=== PATIENT | female | born 1955 | race Caucasian/White ===

== ENCOUNTER → 2018-01-27 16:47 | Outpatient (CLI) | payer OTHER | END | disposition home or self-care (01) | LOC: D.MAMMO 14:45 | DX: Z12.31 Encounter for screening mammogram for malignant neoplasm of breast (principal) ==

== ENCOUNTER → 2018-03-28 14:21 | Outpatient (CLI) | payer OTHER | END | disposition home or self-care (01) | LOC: D.CT 14:21 | DX: R19.00 Intra-abdominal and pelvic swelling, mass and lump, unspecified site (principal) ==

== ENCOUNTER 2018-07-27 08:39 | Day surgery (SDC) | payer OTHER ==
[~2018-07-27] VITALS: Ht 154.9 cm; Wt 52.7 kg
--- NOTE | ~2018-07-27 | OP ---
PATIENT NAME: ASIM TANNER MEDICAL RECORD: [id number] :[birth year] LOCATION:D.OPS ADMISSION DATE: SURGEON: JNAIE PONCE DO DATE OF OPERATION: 07/27/2018 PROCEDURE: Colonoscopy. INDICATIONS FOR PROCEDURE: Screening for colorectal cancer. SCOPE: Olympus video pediatric colonoscope. MEDICATIONS: Propofol 300 mg IV per anesthesia. WITHDRAWAL TIME: 10 minutes. ESTIMATED BLOOD LOSS: None. COMPLICATIONS: None. FINDINGS: Informed consent was given. The patient was made comfortable with the above medication. After reaching an adequate level of sedation by slow IV push, the patient was placed on her left side. A digital rectal examination was performed and was normal. The endoscope was then advanced under direct visualization through the rectum to the terminal ileum. The endoscope was slowly withdrawn and the mucosa was carefully examined. The prep quality was excellent. There were no polyps visualized on today's examination. The mucosa of the colon was normal in its entirety. There was mild diverticulosis involving the sigmoid colon. Retroflexion was performed in the rectum with a normal-appearing rectal wall. The endoscope was withdrawn from the patient. The patient tolerated the procedure well, and there were no complications. IMPRESSION: 1. Mild diverticulosis of the sigmoid colon. 2. Otherwise, normal colonoscopy. PLAN AND RECOMMENDATIONS: 1. Discharge home when recovery parameters are met. 2. High fiber diet. 3. Continue current medications. 4. Recall colonoscopy in 7-10 years. TRANSINT:[id number] Voice Confirmation ID: [id number] DOCUMENT ID: [id number] JANIE PONCE DO CC: [id number] DICTATION DATE: 07/27/18 1111 LEATHER CLEANER: 07/27/18 1118 [facility] [address] [place] [address]
[2018-07-27 09:00] LABS: HEMATOCRIT 40.6 % (36.0-48.0); HEMOGLOBIN 14.3 g/dL (12-16); MCH 32.9 pg (26.0-34.0); MCHC 35.2 g/dL (31.0-37.0); MCV 93.5 fL (80.0-100.0); MEAN PLATELET VOLUME 8.5 fL (7.4-10.4); RBC 4.34 10x6/uL (4.00-5.40); RDW 12.2 % (11.5-14.5); WBC 7.3 10x3/uL (4.8-10.8)
[2018-07-27 09:37] VITALS: BP 156/106; Ht 154.9 cm; Wt 52.7 kg
== END 2018-07-27 12:00 | disposition home or self-care (01) ==
LOC: D.OPS 08:39
PROVIDERS: Anesthesiology
DX: Z12.11 Encounter for screening for malignant neoplasm of colon (principal); K57.30 Diverticulosis of large intestine without perforation or abscess without bleeding; Z01.812 Encounter for preprocedural laboratory examination

== ENCOUNTER 2020-06-21 16:06 | Inpatient (IN) | payer OTHER ==
[~2020-06-21] VITALS: Ht 154.9 cm; Wt 56.2 kg
[2020-06-21] MEDS ORDERED: NP THYROID90 MG PO (17:10)
[2020-06-21] MEDS ORDERED: BYSTOLIC2.5 MG PO (17:10)
[2020-06-21 17:16] VITALS: BP 132/91; BMI 23.4
--- NOTE | 2020-06-21 17:19 | NUR ---
PATIENT ADMITTED TO ROOM 2237. ADMISSION COMPLETE.
--- NOTE | 2020-06-21 17:43 | NUR ---
IV SITED TO LEFT WRIST AFTER TWO ATTEMPT WITH 22 GAUGE. PATIENT REQUESTING FOOD AND DRINK. WAITING PAGE BACK FROM [facility] TO [facility] FOR ORDERS.
--- NOTE | 2020-06-21 18:37 | NUR ---
LAB NOTIFIED THAT MD PLACED ORDER FOR BLOOD CULTURES AFTER FLAGYL STARTED. STATES TURN OFF ABX AND WILL BE ON FLOOR TO GET CULTURES STAN.
[2020-06-21 19:24] LABS: BASOPHILS 0.4 % (0-2); EOSINOPHILS 0.3 % (0-7); HEMATOCRIT 38.9 % (36.0-48.0); HEMOGLOBIN 13.3 g/dL (12-16); IMMATURE GRANULOCYTES 0.8 % (0-5); LYMPHOCYTES 12.1 % (15-50); MCHC 34.2 g/dL (31.0-37.0); MCV 93.7 fL (80.0-100.0); MEAN PLATELET VOLUME 8.2 fL (7.4-10.4); MONOCYTES 14.9 % (2-11); NEUTROPHILS 71.5 % (40-80); RBC 4.15 10x6/uL (4.00-5.40); RDW 12.1 % (11.5-14.5); WBC 8.9 10x3/uL (4.8-10.8)
[2020-06-21 19:32] LABS: PLATELET COUNT 350 10x3/uL (130-400)
[2020-06-21 19:36] LABS: APTT 33.8 SECONDS (22.8-39.4); INR 1.09 (0.85-1.17)
[2020-06-21 20:07] LABS: ALBUMIN 3.4 g/dL (3.4-5.0); ALKALINE PHOSPHATASE 79 U/L (30-120); ALT (SGPT) 34 U/L (10-68); BILIRUBIN - TOTAL 0.45 mg/dL (0.2-1.3); CALC OSMOLALITY 264 mosm/kg (275-300); CALCIUM 9.3 mg/dL (8.5-10.1); CHLORIDE - SERUM 91 mmol/L (98-107); CREATININE - SERUM 0.8 mg/dL (0.6-1.3); GLUCOSE 125 mg/dL (74-106); MAGNESIUM - SERUM 1.6 mg/dL (1.8-2.4); PROTEIN - SERUM 7.5 g/dL (6.4-8.2); SODIUM 132 mmol/L (136-145); THYROID STIMULATING HORMONE 1.65 uIU/mL (0.36-3.74); UREA NITROGEN 10 mg/dL (7-18); eGFR NON AFRICAN AMERICAN 77 mL/min (90-120)
[2020-06-21 23:21] LABS: BILIRUBIN NEGATIVE (NEGATIVE); GLUCOSE NEGATIVE (NEGATIVE); KETONE SMALL mg/dL (NEGATIVE); NITRITE POSITIVE (NEGATIVE); UROBILINOGEN NORMAL (NORMAL); WHITE CELLS - URINE 25-50 /hpf (NEGATIVE)
[2020-06-21 23:22] LABS: BACTERIA MANY /hpf (NEGATIVE); EPITHELIAL CELLS RARE /hpf (0-5)
[2020-06-22 07:22] LABS: BASOPHILS 0.4 % (0-2); EOSINOPHILS 0.7 % (0-7); HEMATOCRIT 35.2 % (36.0-48.0); IMMATURE GRANULOCYTES 0.5 % (0-5); LYMPHOCYTES 8.9 % (15-50); MCH 32.2 pg (26.0-34.0); MCHC 34.1 g/dL (31.0-37.0); MCV 94.4 fL (80.0-100.0); MEAN PLATELET VOLUME 8.4 fL (7.4-10.4); MONOCYTES 16.7 % (2-11); NEUTROPHILS 72.8 % (40-80); PLATELET COUNT 335 10x3/uL (130-400); RBC 3.73 10x6/uL (4.00-5.40); RDW 12.2 % (11.5-14.5); WBC 10.2 10x3/uL (4.8-10.8)
[2020-06-22 08:11] LABS: ALBUMIN 2.7 g/dL (3.4-5.0); ALKALINE PHOSPHATASE 68 U/L (30-120); ALT (SGPT) 25 U/L (10-68); BILIRUBIN - TOTAL 0.39 mg/dL (0.2-1.3); CALC OSMOLALITY 259 mosm/kg (275-300); CALCIUM 8.8 mg/dL (8.5-10.1); CARBON DIOXIDE 28.6 mmol/L (21.0-32.0); CHLORIDE - SERUM 94 mmol/L (98-107); CREATININE - SERUM 0.8 mg/dL (0.6-1.3); GLUCOSE 103 mg/dL (74-106); MAGNESIUM - SERUM 1.6 mg/dL (1.8-2.4); POTASSIUM - SERUM 3.8 mmol/L (3.5-5.1); SODIUM 130 mmol/L (136-145); UREA NITROGEN 9 mg/dL (7-18); eGFR NON AFRICAN AMERICAN 77 mL/min (90-120)
--- NOTE | 2020-06-22 09:46 | NUR ---
PT ALERT AND ORIENTED X4 UPON ENTERING. AMBULATED TO THE BATHROOM AND BACK BY HERSELF. FAMILY AT BEDSIDE. ADMINISTERED MEDICATION WITH SMALL SIP OF WATER. ASSESSMENT PERFORMED. DENIES ANY NEEDS. BED IN LOWEST POSITION, BED RAILS X2, CALL LIGHT WITHIN REACH. WILL CONTINUE TO MONITOR.
[2020-06-22 10:10] VITALS: BP 89/62
--- NOTE | 2020-06-22 13:16 | NUR ---
ADMINISTERED PRN MORPHINE FOR 05/17. RESTING IN BED, FAMILY AT BEDSIDE. DENIES ANY NEEDS. WILL CONTINUE TO MONITOR.
[2020-06-22 13:25] VITALS: BP 121/77
--- NOTE | 2020-06-22 13:58 | NUR ---
I have reviewed this patient and I concur with the Shift Assessment completed by the Licensed Practical Nurse today this shift.
--- NOTE | 2020-06-22 14:57 | NUR ---
HUNG IV MAG TO REPLACE ELECTROLYTES PER PROTOCOL. RESTING COMFORTABLY IN BED, FAMILY AT BEDSIDE. WILL CONTINUE TO MONITOR.
[2020-06-22 17:02] VITALS: BP 113/81
--- NOTE | 2020-06-22 17:26 | NUR ---
ADMINISTERED PRN MORPHINE FOR VAGINAL PAIN, HUNG IV ABX. TOLERATING WELL. RESTING COMFORTABLY IN BED. DENIES ANY NEEDS. WILL CONTINUE TO MONITOR.
--- NOTE | 2020-06-22 19:48 | NUR ---
ADMINISTERED PRN BENADRYL FOR REPORTED ITCHING. DENIES ANY NEEDS. RESTING COMFORTABLY.
[2020-06-22 21:00] VITALS: BP 115/75
--- NOTE | 2020-06-23 01:59 | NUR ---
PT C/O DILAUDID PAIN MEDICATION TOO STRONG, GIVING HER PANIC ATTACK. CALLED DR MCKEE. RECEIVED ORDER TO D/C DILAUDID PRIMARY TEACHING ASSISTANT, RENEW ORIGINAL MORPHINE ORDER AND ORDER REGULAR DIET. REMOVED PRIMARY TEACHING ASSISTANT AND WASTED REMAINDER WITH DAVE TROY. NO OTHER NEEDS. WILL REASSESS AND CONTINUE TO MONITOR.
[2020-06-23 07:01] LABS: BASOPHILS 0.8 % (0-2); EOSINOPHILS 2.3 % (0-7); HEMATOCRIT 34.5 % (36.0-48.0); HEMOGLOBIN 11.3 g/dL (12-16); IMMATURE GRANULOCYTES 1.3 % (0-5); LYMPHOCYTES 24.3 % (15-50); MCH 31.7 pg (26.0-34.0); MCHC 32.8 g/dL (31.0-37.0); MEAN PLATELET VOLUME 8.3 fL (7.4-10.4); MONOCYTES 17.4 % (2-11); NEUTROPHILS 53.9 % (40-80); PLATELET COUNT 359 10x3/uL (130-400); RBC 3.56 10x6/uL (4.00-5.40); RDW 12.3 % (11.5-14.5)
[2020-06-23 07:04] LABS: MCV 96.9 fL (80.0-100.0); WBC 6.1 10x3/uL (4.8-10.8)
[2020-06-23 07:12] LABS: ALBUMIN 2.6 g/dL (3.4-5.0); ALKALINE PHOSPHATASE 59 U/L (30-120); ALT (SGPT) 22 U/L (10-68); BILIRUBIN - TOTAL 0.33 mg/dL (0.2-1.3); CALC OSMOLALITY 265 mosm/kg (275-300); CALCIUM 8.7 mg/dL (8.5-10.1); CARBON DIOXIDE 28.4 mmol/L (21.0-32.0); CHLORIDE - SERUM 99 mmol/L (98-107); CREATININE - SERUM 0.7 mg/dL (0.6-1.3); GLUCOSE 85 mg/dL (74-106); MAGNESIUM - SERUM 1.7 mg/dL (1.8-2.4); POTASSIUM - SERUM 3.8 mmol/L (3.5-5.1); PROTEIN - SERUM 6.7 g/dL (6.4-8.2); SODIUM 135 mmol/L (136-145); eGFR NON AFRICAN AMERICAN 90 mL/min (90-120)
[2020-06-23 07:15] VITALS: BP 129/88
[2020-06-23 07:15] LABS: UREA NITROGEN 5 mg/dL (7-18)
--- NOTE | 2020-06-23 08:03 | NUR ---
PT SITTING UP IN BED WITH EYES OPEN, ALERT AND ORIENTED WITH NO S/S OF DISTRESS CURRENTLY. IV LOCATED TO LEFT WRIST RUNNING NS @ 75ML. DENIES NEEDS AT THIS TIME, WILL CONT TO MONITOR.
--- NOTE | 2020-06-23 08:51 | NUR ---
SPOKE WITH PHARMACY ABOUT RETIMING ARMJIM THYROID TO 0600 AFTER TODAY, TODAY WILL GIVE AT 1000 TO GIVE ENOUGH TIME IN BETWEEN OTHER PILLS AND EATING BREAKFAST.
[2020-06-23 12:04] VITALS: BP 126/81
[2020-06-23 15:48] VITALS: BP 132/87
[2020-06-23 20:00] VITALS: BP 142/97
[2020-06-24] VITALS: BP 149/100
[2020-06-24 04:00] VITALS: BP 147/77
--- NOTE | 2020-06-24 07:15 | NUR ---
RECEIVE BEDSIDE SHIFT REPORT. RESTING IN BED WITH LIGHTS OFF. STATES SHE HAS NO PAIN AT THIS TIME. DENIES ANY CURRENT NEEDS. WILL CONTINUE PLAN OF CARE AND SAFETY PRECAUTIONS.
[2020-06-24 07:46] LABS: BASOPHILS 0.6 % (0-2); EOSINOPHILS 1.2 % (0-7); HEMATOCRIT 36.4 % (36.0-48.0); HEMOGLOBIN 11.9 g/dL (12-16); IMMATURE GRANULOCYTES 0.7 % (0-5); LYMPHOCYTES 12.1 % (15-50); MCH 31.4 pg (26.0-34.0); MCHC 32.7 g/dL (31.0-37.0); MEAN PLATELET VOLUME 8.3 fL (7.4-10.4); MONOCYTES 12.7 % (2-11); NEUTROPHILS 72.7 % (40-80); PLATELET COUNT 397 10x3/uL (130-400); RBC 3.79 10x6/uL (4.00-5.40); RDW 12.4 % (11.5-14.5)
[2020-06-24 07:47] LABS: ALBUMIN 2.7 g/dL (3.4-5.0); ALKALINE PHOSPHATASE 60 U/L (30-120); ALT (SGPT) 22 U/L (10-68); BILIRUBIN - TOTAL 0.34 mg/dL (0.2-1.3); CALC OSMOLALITY 270 mosm/kg (275-300); CALCIUM 8.4 mg/dL (8.5-10.1); CARBON DIOXIDE 28.6 mmol/L (21.0-32.0); CHLORIDE - SERUM 96 mmol/L (98-107); CREATININE - SERUM 0.7 mg/dL (0.6-1.3); GLUCOSE 106 mg/dL (74-106); MAGNESIUM - SERUM 1.3 mg/dL (1.8-2.4); POTASSIUM - SERUM 3.7 mmol/L (3.5-5.1); PROTEIN - SERUM 6.1 g/dL (6.4-8.2); SODIUM 137 mmol/L (136-145); eGFR NON AFRICAN AMERICAN 90 mL/min (90-120)
[2020-06-24 07:48] LABS: UREA NITROGEN 3 mg/dL (7-18)
[2020-06-24 07:57] LABS: WBC 10.3 10x3/uL (4.8-10.8)
[2020-06-24 08:37] VITALS: BP 118/83
[2020-06-24 12:00] VITALS: BP 136/92
[2020-06-24 14:34] VITALS: Ht 154.9 cm; Wt 56.2 kg
[2020-06-24 16:00] VITALS: BP 110/72
[2020-06-24 20:55] VITALS: BP 115/71
[2020-06-25 01:48] VITALS: BP 142/94
[2020-06-25 04:30] VITALS: BP 141/94
[2020-06-25 06:17] LABS: BASOPHILS 0.8 % (0-2); EOSINOPHILS 2.2 % (0-7); HEMOGLOBIN 11.5 g/dL (12-16); IMMATURE GRANULOCYTES 0.8 % (0-5); LYMPHOCYTES 20.6 % (15-50); MCHC 32.9 g/dL (31.0-37.0); MCV 94.3 fL (80.0-100.0); MEAN PLATELET VOLUME 8.3 fL (7.4-10.4); MONOCYTES 14.6 % (2-11); PLATELET COUNT 368 10x3/uL (130-400); RBC 3.71 10x6/uL (4.00-5.40); RDW 12.4 % (11.5-14.5)
[2020-06-25 06:26] LABS: WBC 6.4 10x3/uL (4.8-10.8)
[2020-06-25 06:33] LABS: ALBUMIN 2.5 g/dL (3.4-5.0); ALKALINE PHOSPHATASE 54 U/L (30-120); ALT (SGPT) 18 U/L (10-68); BILIRUBIN - TOTAL 0.38 mg/dL (0.2-1.3); CALCIUM 8.6 mg/dL (8.5-10.1); CARBON DIOXIDE 26.8 mmol/L (21.0-32.0); CREATININE - SERUM 0.8 mg/dL (0.6-1.3); GLUCOSE 100 mg/dL (74-106); MAGNESIUM - SERUM 1.6 mg/dL (1.8-2.4); PROTEIN - SERUM 6.4 g/dL (6.4-8.2); eGFR NON AFRICAN AMERICAN 77 mL/min (90-120)
[2020-06-25 06:54] LABS: CHLORIDE - SERUM 96 mmol/L (98-107); SODIUM 133 mmol/L (136-145)
[2020-06-25 07:00] LABS: CALC OSMOLALITY 262 mosm/kg (275-300); POTASSIUM - SERUM 3.1 mmol/L (3.5-5.1); UREA NITROGEN 5 mg/dL (7-18)
--- NOTE | 2020-06-25 07:09 | NUR ---
WALKING ROUNDS COMPLETE, PT LAYING IN BED WITH EYES OPEN, PT DENIES PAIN OR NEEDS AT THIS TIME, IV INFUSING WITHOUT DIFFICULTY, SITE CLEAR, SR UP X2, CALL LIGHT IN REACH, WILL MONITOR
[2020-06-25 08:09] VITALS: BP 144/95
--- NOTE | 2020-06-25 08:50 | NUR ---
GAVE PT SCHEDULED MED, PT VOICES SHE IS SUPPOSED TO HAVE A CT SCAN, IFORNED PT THAT THERE IS NO ORDER, PT VERBALIZED UNDERSTANDING, WILL CONTINUE TO MONITOR
--- NOTE | 2020-06-25 11:24 | NUR ---
CALLED TO PT ROOM, PT REQUEST HOT TEA, PT DENIES PAIN OR ANY OTHER NEEDS, WILL MONITOR
[2020-06-25] MEDS ORDERED: ZITHROMAX250 MG PO (11:55)
[2020-06-25] MEDS ORDERED: FLAGYL500 MG PO (11:55)
[2020-06-25] MEDS ORDERED: LEVOFLOXACIN500 MG PO (11:55)
--- NOTE | 2020-06-25 12:40 | NUR ---
GAVE PT POTASSIUM 40MEQ PO AND MAG 400MG PO,
[2020-06-25 12:54] VITALS: BP 160/95
[2020-06-25 17:24] VITALS: BP 144/92
--- NOTE | 2020-06-25 17:29 | NUR ---
WENT OVER PT DISCHARGE INSTRUCTIONS, PT VERBALIZED UNDERSTANDING, ANTIBIOTIC CALLED INTO TRICIAT, PT VERBALIZED UNDERSTANDING, REMOVED IV, CATHLON INTACT, ALL PERSONAL BELONGINGS RETURNED, PT CALLED TO PICK HER UP
--- NOTE | 2020-06-25 18:09 | NUR ---
TOOK PT OUT VIA WHEELCHAIR, ALL PERSONAL BELONGINGS RETURNED
--- NOTE | 2020-06-25 19:26 | MORECARE ---
CASE MANAGEMENT DISCHARGE SUMMARY PATIENT: ASIM TANNER UNIT: [id number] ADM DATE: 06/22/20 AGE: 65 : 59 SEX: F ROOM/BED: D.2237 AUTHOR: ALFA,DOC PHYSICIAN: REFERRING PHYSICIAN: BRIAN SANDERS MD DATE OF SERVICE: 06/25/20 Discharge Plan Patient Name: ASIM TANNER Facility: [facility]:[place] : 1955 Planned Disposition: Home Anticipated Discharge Date: Discharge Date: 06/25/2020 Expected LOS: Initial Reviewer: [email or web address] Initial Review Date: 06/21/2020 Generated: 06/25/20 8:25 pm Comments DCP- Discharge Planning Updated by [email or web address]: Korina Valenzuela on 06/25/20 6:[address] Patient Name: ASIM TANNER Admission Status: Urgent Accout number: [id number] Admission Date: 06-22-2020 : 1955 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 CM educated patient on the CM role and verbal consent given by patient to complete assessment. Patient lives at home with family. Patient is independent. At discharge patient plans to return home and feels this is a safe discharge. CM discussed availability of home health, rehab services, and medical equipment. Patient will have family to transport home. Patient denied known discharge needs at this time. CM will continue to follow and will assist as needed with dc plans/needs. Information Technology Teacher: Korina Valenzuela DCPIA - Discharge Planning Initial Assessment Updated by [email or web address]: Korina Valenzuela on 06/25/20 7:23 pm * Is the patient Alert and Oriented? Yes * How many steps to enter\exit or inside your home? ramp * PCP CONNIE BARLOW APN * Pharmacy [facility] * Preadmission Environment Home with Family * ADLs Independent * Equipment None * List name and contact numbers for known caregivers / representatives who currently or will assist patient after discharge: HALLE TANNER - SPOUSE - [phone] * Verbal permission to speak to the caregivers and representatives has been obtained from the patient. Yes * Community resources currently utilized None * Additional services required to return to the preadmission environment? No * Can the patient safely return to the preadmission environment? Yes * Has this patient been hospitalized within the prior 30 days at any hospital? No Patient Name: ASIM TANNER Page [phone] at 1926 All edits/amendments must be made on the electronic document DICTATION DATE: 06/25/201924 ADDICTION COUNSELOR: JUDI 06/25/201924 RPT#: [id number] DC DATE:06/25/20 STATUS: DIS IN [facility] [address] [place] [address] END OF REPORT
--- NOTE | 2020-06-27 09:03 | MORECARE ---
CASE MANAGEMENT DISCHARGE SUMMARY PATIENT: ASIM TANNER UNIT: [id number] ADM DATE: 06/22/20 AGE: 65 : 59 SEX: F ROOM/BED: D.2237 AUTHOR: ALFA,DOC PHYSICIAN: REFERRING PHYSICIAN: BRIAN SANDERS MD DATE OF SERVICE: 06/27/20 Discharge Plan Patient Name: ASIM TANNER Facility: [facility]:[place] : 1955 Planned Disposition: Home Anticipated Discharge Date: Discharge Date: 06/25/2020 Expected LOS: Initial Reviewer: [email or web address] Initial Review Date: 06/21/2020 Generated: 06/27/20 10:02 am Comments DCP- Discharge Planning Updated by [email or web address]: Korina Valenzuela on 06/25/20 6:[address] Patient Name: ASIM TANNER Admission Status: Urgent Accout number: [id number] Admission Date: 06-22-2020 : 1955 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 CM educated patient on the CM role and verbal consent given by patient to complete assessment. Patient lives at home with family. Patient is independent. At discharge patient plans to return home and feels this is a safe discharge. CM discussed availability of home health, rehab services, and medical equipment. Patient will have family to transport home. Patient denied known discharge needs at this time. CM will continue to follow and will assist as needed with dc plans/needs. Mill Stenciler: Korina Valenzuela DCPIA - Discharge Planning Initial Assessment Updated by [email or web address]: Korina Valenzuela on 06/25/20 7:23 pm * Is the patient Alert and Oriented? Yes * How many steps to enter\exit or inside your home? ramp * PCP CONNIE BARLOW APN * Pharmacy [facility] * Preadmission Environment Home with Family * ADLs Independent * Equipment None * List name and contact numbers for known caregivers / representatives who currently or will assist patient after discharge: HALLE TANNER - SPOUSE - [phone] * Verbal permission to speak to the caregivers and representatives has been obtained from the patient. Yes * Community resources currently utilized None * Additional services required to return to the preadmission environment? No * Can the patient safely return to the preadmission environment? Yes * Has this patient been hospitalized within the prior 30 days at any hospital? No Last DP export: 06/25/20 6:26 p Patient Name: ASIM TANNER Page [phone] at 0903 All edits/amendments must be made on the electronic document DICTATION DATE: 06/27/20901 METAL TUBE CUTTER: JUDI 06/27/20901 RPT#: [id number] DC DATE:06/25/20 STATUS: DIS IN [facility] [address] [place] [address] END OF REPORT
== END 2020-06-25 18:10 | disposition home or self-care (01) | DRG 394 ==
LOC: D.MS 16:06 → OBSVTIME 16:06 → D.MS 16:06
PROVIDERS: Family Medicine; ADMIT Family Medicine; ATTEND Family Medicine
DX: N82.4 Other female intestinal-genital tract fistulae (principal); N32.1 Vesicointestinal fistula; I10 Essential (primary) hypertension; E78.5 Hyperlipidemia, unspecified; E03.9 Hypothyroidism, unspecified; E55.9 Vitamin D deficiency, unspecified; M19.90 Unspecified osteoarthritis, unspecified site; F41.8 Other specified anxiety disorders; R10.9 Unspecified abdominal pain

== ENCOUNTER → 2020-07-22 10:20 | Outpatient (CLI) | payer OTHER ==
[2020-06-24 14:34] VITALS: BMI 23.4
[~2020-07-22 10:20] MED LIST: BYSTOLIC2.5 MG PO; FLAGYL500 MG PO; LEVOFLOXACIN500 MG PO; NP THYROID90 MG PO; ZITHROMAX250 MG PO
== END | disposition home or self-care (01) ==
LOC: D.CT 10:20
PROVIDERS: ATTEND Nurse Practitioner
DX: K60.5 Anorectal fistula (principal)

== ENCOUNTER 2020-08-13 08:00 | Outpatient (CLI) | payer OTHER ==
[2020-06-24 14:34] VITALS: BMI 23.4
[2020-08-13] MEDS ORDERED: CIPRO500 MG PO (13:16)
[2020-08-13] MEDS ORDERED: CENTRUM SILVER1 EAC3 PO (13:16)
[2020-08-13] MEDS ORDERED: ULTRAM50 MG PO (13:17)
[2020-08-13 14:01] LABS: BASOPHILS 1.2 % (0-2); EOSINOPHILS 3.1 % (0-7); HEMATOCRIT 36.7 % (36.0-48.0); HEMOGLOBIN 12.7 g/dL (12-16); IMMATURE GRANULOCYTES 0.2 % (0-5); LYMPHOCYTES 36.2 % (15-50); MCH 30.8 pg (26.0-34.0); MCHC 34.6 g/dL (31.0-37.0); MCV 88.9 fL (80.0-100.0); MEAN PLATELET VOLUME 8.3 fL (7.4-10.4); MONOCYTES 11.2 % (2-11); NEUTROPHILS 48.1 % (40-80); RBC 4.13 10x6/uL (4.00-5.40); RDW 13.9 % (11.5-14.5); WBC 4.8 10x3/uL (4.8-10.8)
[2020-08-13 14:06] LABS: PLATELET COUNT 247 10x3/uL (130-400)
[2020-08-13 14:09] LABS: CALC OSMOLALITY 252 mosm/kg (275-300); CALCIUM 9.3 mg/dL (8.5-10.1); CARBON DIOXIDE 28.3 mmol/L (21.0-32.0); CHLORIDE - SERUM 92 mmol/L (98-107); CREATININE - SERUM 0.7 mg/dL (0.6-1.3); GLUCOSE 81 mg/dL (74-106); POTASSIUM - SERUM 3.8 mmol/L (3.5-5.1); SODIUM 128 mmol/L (136-145); UREA NITROGEN 4 mg/dL (7-18); eGFR NON AFRICAN AMERICAN 90 mL/min (90-120)
== END 2020-08-13 08:01 | disposition home or self-care (01) ==
LOC: D.PAN 08:00 → D.SDCHOLD 08-15 04:45 → EDSTATUS 08-15 09:45 → D.SDCHOLD 08-15 10:00
PROVIDERS: Obstetrics & Gynecology; ATTEND Surgery
DX: R10.2 Pelvic and perineal pain (principal); N32.1 Vesicointestinal fistula; Z53.8 Procedure and treatment not carried out for other reasons